=== PATIENT | female | born 1955 | race Caucasian/White ===

== ENCOUNTER 2017-01-02 03:05 | Emergency (ER) | payer MEDICAID, OTHER ==
[~2017-01-02] VITALS: Ht 160 cm; Wt 81.6 kg
[~2017-01-02 03:05] MED LIST: ALBU0.0912 IH; BECL0.089 INH; BUDE180P IH
[2017-01-02 03:23] VITALS: BP 148/92
--- NOTE | 2017-01-02 04:45 | NUR ---
PATIENT LEFT WITHOUT BEING SEEN BY DR. TYSON. NO FURTHER CARE PROVIDED FOR PATIENT.
== END 2017-01-02 04:45 | disposition left against medical advice (07) ==
LOC: MED 03:05
DX: M25.562 Pain in left knee (principal); E11.9 Type 2 diabetes mellitus without complications; J45.909 Unspecified asthma, uncomplicated; E05.90 Thyrotoxicosis, unspecified without thyrotoxic crisis or storm; M19.90 Unspecified osteoarthritis, unspecified site; Z53.21 Procedure and treatment not carried out due to patient leaving prior to being seen by health care provider
CPT/HCPCS: 81025

== ENCOUNTER 2017-08-01 23:01 | Emergency (ER) | payer OTHER ==
[~2017-08-01] VITALS: Ht 160 cm; Wt 77.1 kg
[2017-08-01 23:06] VITALS: BP 150/91
--- NOTE | 2017-08-01 23:13 | NUR ---
to lobby, a/w jose turner ermd noted
--- NOTE | 2017-08-02 00:05 | NUR ---
MARLENE AMBULATED TO ER [facility].
--- NOTE | 2017-08-02 00:42 | NUR ---
ER MD AT BEDSIDE EVAL DONE
--- NOTE | 2017-08-02 00:55 | NUR ---
pt bib self c/o rt hand pain s/p rat bite 15 minutes ago. tetanus vaccine utd cap refill-Imm. full A.R.O.M. noted. PT DENIES N/V/D; SKIN IS INTACT, PINK/WARM/DRY; AAOX4, PERRL, WITH EVEN AND STEADY GAIT; LUNGS CLEAR BL, BREATHING UNLABORED; HR EVEN AND REGULAR, BL PERIPHERAL PULSES PRESENT; BS ACTIVE X4, NO TENDERNESS TO PALPATION. PT DENIES ANY FEVER, CP, SOB, OR COUGH AT THIS TIME; PT STATES 1/10 PAIN AT THIS TIME; VSS; PATIENT POSITIONED FOR COMFORT; HOB ELEVATED; BEDRAILS UP X2; BED DOWN.
[2017-08-02 01:49] VITALS: BP 143/90
== END 2017-08-02 01:49 | disposition home or self-care (01) ==
LOC: MED 23:01
DX: S60.511A Abrasion of right hand, initial encounter (principal); J45.909 Unspecified asthma, uncomplicated; E11.9 Type 2 diabetes mellitus without complications; Z90.49 Acquired absence of other specified parts of digestive tract; Z88.0 Allergy status to penicillin; Z88.5 Allergy status to narcotic agent; W53.11XA Bitten by rat, initial encounter; Y93.9 Activity, unspecified; Y92.89 Other specified places as the place of occurrence of the external cause; Y99.8 Other external cause status
CPT/HCPCS: 90471; 90715; 99283